=== PATIENT | male | born 1960 | race African-American/Black ===

== ENCOUNTER 2022-08-06 19:25 | Emergency (ER) | payer MEDICAID, SELFPAY ==
[2022-08-06 19:28] VITALS: BP 195/128; PULSE 89; RESP 26; TEMP 36.7; O2SAT 98; BMI 25.8
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
--- NOTE | 2022-08-06 19:33 | ECG_ITS ---
The 

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
[2022-08-06 19:36] VITALS: PULSE 96
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
[2022-08-06 19:48] LABS: Basophils Absolute Auto 0.1 10^3/uL (0.0-0.1); Basophils Percent Auto 1.2 % (0.2-2.0); Eosinophils Absolute Auto 0.3 10^3/uL (0.0-0.7); Eosinophils Percent Auto 3.9 % (0.9-7.0); Hematocrit 43.7 % (42.0-54.0); Hemoglobin 14.9 g/dL (14.0-18.0); Immature Granulocytes Abs Auto 0.04 10^3/uL (0.00-0.03); Immature Granulocytes Pct Auto 0.5 % (0.0-0.5); Lymphocytes Absolute Auto 2.1 10^3/uL (1.2-3.8); Lymphocytes Percent Auto 24.3 % (20.5-60.0); Mean Corpuscular HGB Conc 34.1 g/dL (29.9-35.2); Mean Corpuscular Hemoglobin 30.5 pg (25.9-34.0); Mean Corpuscular Volume 89.5 fL (80.0-94.0); Mean Platelet Volume 8.6 fL (9.5-13.5); Monocytes Absolute Auto 0.8 10^3/uL (0.3-0.8); Monocytes Percent Auto 9.2 % (1.7-12.0); Neutrophils Absolute Auto 5.2 10^3/uL (1.4-6.5); Neutrophils Percent Auto 60.9 % (43.0-75.0); Platelet Count 353 10^3/uL (150-450); Red Blood Count 4.88 10^6/uL (4.70-6.10); Red Cell Distribution Width 14.6 % (11.0-15.0); White Blood Count 8.5 10^3/uL (4.0-11.0)
[2022-08-06 19:59] LABS: INR 0.94; Partial Thromboplastin Time 24.2 sec (22.3-36.2)
[2022-08-06 20:00] LABS: Anion Gap 14.3
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
[2022-08-06 20:03] LABS: Alanine Aminotransferase 42 U/L (16-63); Albumin Globulin Ratio 0.8; Albumin Level 3.4 g/dL (3.4-5.0); Alkaline Phosphatase 102 U/L (46-116); Aspartate Amino Transferase 43 U/L (15-37); BUN Creatinine Ratio 10.2; Bilirubin Total 0.3 mg/dL (0.2-1.0); Calcium 8.7 mg/dL (8.5-10.1); Carbon Dioxide 23.6 mmol/L (21.0-32.0); Chloride 102 mmol/L (98-107); Estimated GFR (African America 48 (>=60); Estimated GFR (Non-African Ame 39 (>=60); Ethanol <3 mg/dL; Globulin 4.2 g/dL; Glucose 101 mg/dL (74-106); Potassium 4.9 mmol/L (3.5-5.1); Sodium 135 mmol/L (136-145); Total Protein 7.6 g/dL (6.4-8.2); Troponin I High Sensitivity 12.8 pg/mL (4.0-76.1)
[2022-08-06] MEDS: KETOROLAC TROMETHAMINE 30 MG/ML VIAL IVP (20:31)
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
[2022-08-06 20:48] VITALS: BP 176/108; PULSE 94; RESP 14; O2SAT 98
[2022-08-06 21:09] VITALS: BP 176/112; PULSE 90; RESP 16
[2022-08-06 21:42] VITALS: BP 186/107; PULSE 90; O2SAT 98
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
== END 2022-08-06 22:03 | disposition home or self-care (01) ==
PROVIDERS: Emergency Provider Emergency Medicine
DX: S43.402A Unspecified sprain of left shoulder joint, initial encounter (principal); V59.9XXA Occupant (driver) (passenger) of pick-up truck or van injured in unspecified traffic accident, initial encounter; M54.2 Cervicalgia; M54.9 Dorsalgia, unspecified
CPT/HCPCS: 36415; 70450; 71250; 72125; 72131; 73030; 73060; 74176; 80053; 80320; 84484; 85025; 85610; 85730; 86850; 86900; 86901; 93005; 96374; 99285